=== PATIENT | female | born 1955 | race Caucasian/White ===

== ENCOUNTER → 2024-03-16 15:25 | Outpatient (BNVA) | payer SELFPAY | PROVIDERS: Visit Provider Family Medicine | DX: S92.192A Other fracture of left talus, initial encounter for closed fracture (principal); S82.832A Other fracture of upper and lower end of left fibula, initial encounter for closed fracture; X58.XXXA Exposure to other specified factors, initial encounter | CPT/HCPCS: 73600 ==